=== PATIENT | male | born 1950 | race Caucasian/White ===

== ENCOUNTER 2017-09-18 18:22 | Inpatient (IN) | payer OTHER ==
[~2017-09-18] VITALS: Ht 172.7 cm; Wt 87.6 kg
--- NOTE | ~2017-09-18 | H ---
[facility] [place] [address] HISTORY AND PHYSICAL Name: JESSICA HORVATH Room #: 201-P [facility] IN M.R.#: [id number] Admission: 09/18/17 Attend Phys: Rob Morris DO Discharge: 09/19/17 Date of : 54 Report #: [id number] THIS REPORT FOR: //name// CC: Steven Aviles DATE OF SERVICE: 09/18/2017 ATTENDING PHYSICIAN: Dr. Boucher. PRIMARY CARE PHYSICIAN: Dr. Patel Aviles. CHIEF COMPLAINT: Left leg numbness and pain. HISTORY OF PRESENT ILLNESS: The patient is a 67-year-old male who has a history of peripheral arterial disease. He has prior stents in both lower extremities, 1 in the left and 2 in the right leg. He has also had a prior carotid endarterectomy on the left. These were done many years ago. He just takes aspirin daily. He states he has some chronic left lower extremity pain. He noticed yesterday around 2:00 p.m. his pain significantly increased. It was worse with walking or trying to elevate his leg. His pain was worse around his left ankle and foot. He felt that his left foot went numb and felt very cool. He denies any history of DVT. He initially went to [facility] where he had a CT angiogram, which showed significant stenosis in the left lower extremity, so he was sent here for further vascular evaluation. He did receive some morphine and he says his pain is better controlled. He is currently resting comfortably. PAST MEDICAL HISTORY: COPD, peripheral arterial disease, GERD, hypertension, hyperlipidemia. PAST SURGICAL HISTORY: Left iliac stent, right lower extremity stent x 2, left carotid endarterectomy, cervical fusion, lumbar surgery x 2. ALLERGIES: SALICYLATES CAUSE ITCHING, but he is able to take aspirin daily. HOME MEDICATIONS: DuoNebs, albuterol inhaler p.r.n., Toprol-XL 100 mg daily, lisinopril 10 mg daily, aspirin 81 mg daily, Celexa 40 mg daily, and omeprazole 40 mg daily. SOCIAL HISTORY: The patient continues to smoke. He currently smokes 1 pack per day, he has been smoking for at least 55 years. Denies any current alcohol use. He does have history of heavy alcohol use in the past. He says he quit drinking a few years ago. Denies any history of drug use. He is retired. He [address] [address] HISTORY AND PHYSICAL Name: JESSICA HORVATH Room #: 201-P [facility]#: [id number] Admission: 09/18/17 Attend Phys: Rob Morris DO Discharge: 09/19/17 Date of : 54 Report #: [id number] lives alone. He ambulates with a cane. FAMILY HISTORY: His grandfather had diabetes. His mother had hypertension and of old age. His father at the age of 48 from a farming accident and his sister had cancer. REVIEW OF SYSTEMS: Twelve-point review of systems was reviewed with the patient, otherwise negative unless stated in the HPI. PHYSICAL EXAMINATION: GENERAL: The patient is an alert male in no acute distress. VITAL SIGNS: Temperature is 36.6, heart rate 72, respirations 18, blood pressure 153/82, oxygen 95% on room air. HEENT: PERRLA. Sclerae is nonicteric. Oral mucosa is pink and moist. NECK: Supple, no JVD noted. CARDIAC: Normal S1, S2. No murmurs, rubs or gallops. RESPIRATORY: Breath sounds with a few scattered expiratory wheezes, diminished in the bases. Breathing is nonlabored. He is able to speak in full sentences. ABDOMEN: Soft and nontender, nondistended with positive bowel sounds. VASCULAR: His left foot is somewhat cool and pale, but there is no mottling. Pedal pulses not detectable by palpation. He does have some tenderness around his left ankle area. There is no significant edema. SKIN: Intact. No rashes or lesions. LABORATORIES AND DIAGNOSTICS: Blood work from [facility] showed a WBC of 10.6, hemoglobin 14.6 and platelets 325. Sodium 143, potassium 3.4, BUN 12, creatinine 1.0. Glucose is 87. LFTs were within normal limits. CT angio of the lower extremity showed prominent irregular atherosclerotic plaque with moderate stenosis of the distal infrarenal abdominal aorta. There was also occluded stenting left common iliac artery, occluded left external iliac artery, reconstitution of the left common femoral artery from epigastric intramuscular collaterals. There is an occluded popliteal artery, the tibioperoneal trunk is also occluded. There is reconstitution of the anterior tibial, posterior tibial arteries and peroneal arteries. The arterial tibial and the peroneal artery are occluded at the ____ flow is visualized within the posterior tibial artery within the foot, which is much less intense than present on the right. ASSESSMENT AND PLAN: 1. Left leg arterial occlusion. The patient has been admitted for further vascular evaluation. He will be seen by Dr. Rodarte with Interventional Radiology who did not request any sort of heparin drip or anticoagulation at this point. Continue with pain control. 2. Hypertension. Resume home medications and continue to monitor. 3. Chronic obstructive pulmonary disease. He does have ongoing tobacco abuse. We will continue breathing treatments as at home. He is not on any home oxygen. He has been advised to quit smoking, especially with his history of peripheral [facility] [address] [place] [address] HISTORY AND PHYSICAL Name: JESSICA HORVATH Room #: 201-P [facility] IN ..#: [id number] Admission: 09/18/17 Attend Phys: Rob Morris DO Discharge: 09/19/17 Date of : 54 Report #: [id number] arterial disease. 4. Hypokalemia. We will repeat labs in the morning and replace if necessary. We will continue to follow the patient closely throughout the hospitalization and make changes based on clinical status. <ELECTRONICALLY SIGNED> By: RICKIE Mckeon 09/19/17 2249 0940 RICKIE Mckeon /nt
--- NOTE | ~2017-09-18 | EKG ---
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 MORFIN : 1950 Requested By: Shanique Bates Order Number: [id number] MD: Aretm Ac Measurements Intervals Lawrence Rate: 64 P: -10 DC: 170 QRS: 7 QRSD: 88 T: 63 QT: 441 QTc: 455 Interpretive Statements Sinus rhythm Probable left atrial enlargement Abnormal R-wave progression, early transition ST elevation, consider inferior injury Compared to ECG 10/27/2010 15:56:24 Myocardial infarct finding now present Electronically Signed On 09-19-2017 17:21:35 CDT by Artem Ac [email or web address] <ELECTRONICALLY SIGNED> By: Artem Ac MD, [facility] 09/19/17 1721 1610 1610 Artem Ac MD, [facility] /EPI
--- NOTE | ~2017-09-18 | CATHLAB ---
[facility] [place] [address] [place] [address] INVASIVE PROCEDURE REPORT Name: JESSICA HORVATH Room #: 201-P [facility] IN .R.#: [id number] Admission: 09/18/17 Attend Phys: Rob Morris, Discharge: Date of : 54 Date of Service: 09/19/17 1518 Report #: [id number] THIS REPORT FOR: //name// APPROVED REPORT Study performed: 09/19/2017 13:08:22 Patient Details Patient Status: In-Patient Room #: The patient is a 67 year-old male Event Personnel Royer Ruiz RN, Annamaria Pryor RN RN, Nasreen Thorne Partnoy, Nancy RTR, DECORATIVE ENGRAVER APPRENTICE Monitor, Macho Degroot Theatre Program Director Procedures Performed Art Access - R femoral artery* Left Heart Cath w/or w/o Coronaries [id number] [facility] Indication Dyspnea, Cardiomyopathy, Pre-op clearance Risk Factors Peripheral Vascular Disease, Hypercholesterolemia, Hypertension, Tobacco History () Previous Procedures/Diagnoses Previous Femoral Procedure Procedure Narrative A 5F 11CM CORDIS sheath was inserted into the RFA^. Coronary angiography was performed using coronary diagnostic catheters. The right coronary system was accessed and visualized with a JR4 catheter. The left coronary system was accessed and visualized with a JL4 catheter. The left ventricle was accessed and visualized with a Pigtail catheter. Left ventricular/Aortic Valve gradient assessed via catheter pullback. Left ventriculogram was performed in 30 degree projection. Closure device was deployed with a 5 Fr MYNXGRIP 5F #[id number]. The patient tolerated the procedure well and there were no complications associated with the procedure. There was no hematoma. Intraoperative Conscious Sedation Fentanyl mcg Versed mg [facility] [address] [place] [address] INVASIVE PROCEDURE REPORT Name: JESSICA HORVATH Room #: 201-P [facility] IN [facility]#: [id number] Admission: 09/18/17 Attend Phys: Rob Morris, Discharge: Date of : 54 Date of Service: 09/19/17 1518 Report #: [id number] Fluoro Time: 1.43 minutes Dose: DAP 4107.53 cGycm2 559 mGy Contrast Type and Amount: Visipaque 209 ml Coronary Angiography The patient's coronary anatomy is co- dominant. Diagnostic Cath Left Main Large-caliber vessel with moderate diffuse disease in the distal segment, 40-50%. LAD Mild disease in the proximal segment, 30%. At the junction of the proximal/mid segment, there is a moderate stenosis, 50%. There is a total occlusion in the distal LAD segment. Diagonal 1 Patent vessel, with no flow-limiting lesions. Circumflex Codominant vessel with a severe stenosis at the ostium, 80%. There is a severe stenosis in the proximal segment, 70%. OM1 Has a high takeoff, supplies 3 branches as it travels down the high lateral wall. OM2 Small-caliber vessel, with no flow-limiting lesions. Right Coronary There is a severe stenosis in the proximal segment, 70%. R PDA Patent vessel, with no flow-limiting lesions. Left Ventriculography The left ventricle is normal in size with decreased contractility. The left ventricular ejection fraction is estimated to be 40%. Left ventricular wall motion abnormalities are present. Hypokinesis of the apical and distal inferior segments. Hemodynamics The aortic pressure is 178/89 mmHg with a mean of 123 mmHg. The left ventricular pressure is 225/37 mmHg with a mean of mmHg. The left ventricular end diastolic pressure is 54 mmHg. Conclusion 1. Severe multivessel disease. 2. Mild to moderate segmental LV dysfunction. 3. Recommend CV surgery consultation. 4. Aggressive risk factor management, including cessation of all tobacco use. <ELECTRONICALLY SIGNED> By: Macho Degroot MD 09/19/17 1518 1518 1518 Macho Degroot MD /INF
[~2017-09-18 18:22] MED LIST: ACETAMINOPHEN325 M1 PO; ADVAIR HFA 1112 UNIT IH; ASPIR 8181 MG PO; ASPIRIN325; AZITHROMYCIN 2250 MG PO; BENEFIBER98 GM PO; CARISOPRODOL 3350 M1 PO; CEFTIN500 MG PO; CELEXA40 MG PO; IMODIUM MULTI-1 EACH PO; LIPITOR40 MG; LIPITOR40 MG PO; MOBIC15 MG; MULTIVITAMINS PO; NEXIUM40 MG; NEXIUM40 MG PO; OXYCONTIN10 M1 PO; PLAVIX 75 MG TA75 MG PO; PROVENTIL HFA6.7 G1 IH; TOPROL XL100 MG; TOPROL XL100 MG PO; TRILIPIX135 MG; TRILIPIX135 MG PO; VIAGRA PO; VIAGRA100 MG
[2017-09-18 19:53] VITALS: BP 153/82
[2017-09-18] MEDS ORDERED: LISINOPRIL10 MG PO (23:44)
[2017-09-18] MEDS ORDERED: PRILOSEC 20 MG20 MG PO (23:44)
[2017-09-18] MEDS ORDERED: DUONEB 2.5-0.5 M3 ML INH (23:45)
[2017-09-19] VITALS (9 sets, daily range): BP systolic 106–153; BP diastolic 54–84
[2017-09-19 04:33] LABS: HEMATOCRIT 37.1 % (42.0-52.0); HEMOGLOBIN 12.4 gm/dL (14.0-18.0); MCH 30.8 pg (26.0-34.0); MCHC 33.3 g/dL (28.0-37.0); MCV 92.4 fL (80.0-100.0); RBC 4.01 mil/uL (4.50-6.00); RDW 14.6 % (10.5-14.5); WBC 8.5 thou/uL (4.0-11.0)
[2017-09-19 04:54] LABS: CALCIUM 7.1 mg/dL (8.5-10.1); POTASSIUM 3.3 mmol/L (3.5-5.1)
[2017-09-19 05:09] LABS: MAGNESIUM 0.6 mg/dL (1.8-2.4)
[2017-09-19 08:28] LABS: INR 1.1; PROTIME 10.8 Seconds (9.3-11.4)
== END 2017-09-19 17:10 | disposition short-term general hospital (02) | DRG 287 ==
LOC: 2N 18:22
PROVIDERS: Nurse Practitioner Acute Care; Nurse Practitioner Gerontology
PROC: B211YZZ Fluoroscopy of Multiple Coronary Arteries using Other Contrast (ICD-10-PCS; principal; 2017-09-19)
PROC: 4A023N7 Measurement of Cardiac Sampling and Pressure, Left Heart, Percutaneous Approach (ICD-10-PCS; principal; 2017-09-19)
PROC: B215YZZ Fluoroscopy of Left Heart using Other Contrast (ICD-10-PCS; principal; 2017-09-19)
PROC: B4181ZZ Fluoroscopy of Bilateral Renal Arteries using Low Osmolar Contrast (ICD-10-PCS; 2017-09-19)
DX: T82.858A Stenosis of other vascular prosthetic devices, implants and grafts, initial encounter (principal); I77.9 Disorder of arteries and arterioles, unspecified; I25.10 Atherosclerotic heart disease of native coronary artery without angina pectoris; I73.9 Peripheral vascular disease, unspecified; J44.9 Chronic obstructive pulmonary disease, unspecified; K21.9 Gastro-esophageal reflux disease without esophagitis; I10 Essential (primary) hypertension; E78.5 Hyperlipidemia, unspecified; F17.210 Nicotine dependence, cigarettes, uncomplicated; Z60.2 Problems related to living alone; E87.6 Hypokalemia; E78.00 Pure hypercholesterolemia, unspecified; G47.33 Obstructive sleep apnea (adult) (pediatric); E83.42 Hypomagnesemia; Z95.820 Peripheral vascular angioplasty status with implants and grafts; Z88.6 Allergy status to analgesic agent; Z88.8 Allergy status to other drugs, medicaments and biological substances; Z83.3 Family history of diabetes mellitus; Z82.49 Family history of ischemic heart disease and other diseases of the circulatory system; Z95.5 Presence of coronary angioplasty implant and graft; Z79.82 Long term (current) use of aspirin; Z79.899 Other long term (current) drug therapy
CPT/HCPCS: 10081